=== PATIENT | male | born 1990 | race Caucasian/White ===

== ENCOUNTER 2017-11-28 09:42 | Emergency (ER) | payer OTHER ==
[2017-11-28] MEDS: CLINDAMYCIN 900 MG in APPROPRIATE DILUENT 1 EA IV (10:09)
[2017-11-28 10:18] LABS: BASO % 0.1 % (0.0-1.0); EOS % 0.3 % (0.0-3.0); HEMATOCRIT 44.6 % (42.0-52.0); IMMATURE GRANULOCYTE % 0.5 % (0-3.0); LYMPH # 1.3 10^3/uL (1.5-6.5); LYMPH % 8.2 % (24.0-44.0); MEAN CORPUSCULAR HEMOGLOBIN 27.9 pg (27.0-33.0); MEAN CORPUSCULAR HGB CONC 33.6 g/dl (32.0-36.5); MEAN CORPUSCULAR VOLUME 83.1 fl (80.0-96.0); MONO % 6.7 % (0.0-5.0); NEUTROPHILS % 84.2 % (36.0-66.0); PLATELET COUNT, AUTOMATED 230 10^3/uL (150-450); RED BLOOD COUNT 5.37 10^6/uL (4.30-6.10); RED CELL DISTRIBUTION WIDTH 11.9 % (11.5-14.5); WHITE BLOOD COUNT 15.4 10^3/uL (4.0-10.0)
[2017-11-28] MEDS: LIDOCAINE 1% MDV 20ML VIAL SC (10:30)
[2017-11-28 10:39] LABS: C REACTIVE PROTEIN QUANTITATIV 6.58 MG/DL (0.00-0.30)
== END 2017-11-28 11:25 | disposition home or self-care (01) ==
LOC: M ED 09:42
DX: L02.01 Cutaneous abscess of face (principal)
CPT/HCPCS: 86140

== ENCOUNTER 2020-01-17 18:09 | Emergency (ER) | payer OTHER ==
[~2020-01-17] VITALS: Ht 172.7 cm; Wt 82.2 kg
[~2020-01-17 18:09] MED LIST: CLEO300C2 PO; IBUP-1022 PO
[2020-01-17] MEDS ORDERED: BOOSTRIX/ADACEL VACCINE (DIPHTH/PERTUSS/ACELL/TETANUS) 0.5ML SYR IM ONE (18:45)
[2020-01-17] MEDS ORDERED: KEFL500C17 PO (20:16)
[2020-01-17 20:19] VITALS: BP 136/69
--- NOTE | 2020-01-19 07:30 | REP ---
Clinical: Trauma. Technique: AP, lateral, bilateral oblique views right second digit . Findings: The osseous structures and joint spaces are intact and normal. There is no evidence for acute fracture or dislocation. Surrounding soft tissues are unremarkable. No subcutaneous emphysema or radiodense foreign body. Impression: No acute fracture or dislocation. Electronically Signed by Haim Molina MD 01/17/2020 06:49 P
== END 2020-01-17 20:32 | disposition home or self-care (01) ==
LOC: M ED 18:09
DX: S61.300A Unspecified open wound of right index finger with damage to nail, initial encounter (principal); W26.8XXA Contact with other sharp object(s), not elsewhere classified, initial encounter; Y92.098 Other place in other non-institutional residence as the place of occurrence of the external cause; Y93.89 Activity, other specified; Y99.8 Other external cause status; Z23 Encounter for immunization